=== PATIENT | female | born 1995 | race Caucasian/White ===

== ENCOUNTER 2018-06-14 00:06 | Emergency (ER) | payer MEDICAID ==
[~2018-06-14] VITALS: Ht 167.6 cm; Wt 137.6 kg
[2018-06-14 00:42] LABS: BASOPHILS # (AUTO) 0.04 x10^3/uL (0-0.1); BASOPHILS % (AUTO) 0 % (0-1); EOSINOPHILS % (AUTO) 1 % (1-7); LYMPHOCYTES # (AUTO) 2.52 x10^3/uL (1-3.4); LYMPHOCYTES % (AUTO) 20 % (22-44); MD NO; MEAN CORPUSCULAR HEMOGLOBIN 26.9 pg (27.0-34.8); MEAN CORPUSCULAR HGB CONC 33.6 g/dL (32.4-35.8); MEAN CORPUSCULAR VOLUME 79.9 fL (80-100); MEAN PLATELET VOLUME 8.2 fL (7.4-10.4); MONOCYTES # (AUTO) 0.77 x10^3/uL (0.2-0.8); MONOCYTES % (AUTO) 6 % (2-9); NEUTROPHILS # (AUTO) 9.15 x10^3/uL (1.8-6.8); NEUTROPHILS % (AUTO) 73 % (42-75); PLATELET COUNT 395 x10^3/uL (130-400); RED CELL DISTRIBUTION WIDTH 14.1 % (9.6-15.2)
[2018-06-14 00:49] LABS: ALANINE AMINOTRANSFERASE 23 U/L (12-78); ALBUMIN 3.6 g/dL (3.4-5.0); ANION GAP 11 mmol/L (5-15); CALCIUM 9.4 mg/dL (8.5-10.1); CHLORIDE 105 mmol/L (98-107)
[2018-06-14 00:53] LABS: ALKALINE PHOSPHATASE 89 U/L (45-117); BILIRUBIN,TOTAL 0.3 mg/dL (0.2-1.0); TOTAL PROTEIN 8.5 g/dL (6.4-8.2)
[2018-06-14 01:08] LABS: MICROSCOPIC INDICATED
[2018-06-14 01:25] LABS: CULTURE INDICATED? YES
[2018-06-14 01:38] VITALS: BP 125/53
== END 2018-06-14 01:46 | disposition home or self-care (01) ==
LOC: ED 01:40
DX: O03.9 Complete or unspecified spontaneous abortion without complication (principal)
CPT/HCPCS: 36415; 76856; 80053; 81001; 84702; 85025; 86901; 87077; 87086; 87186; 99285

== ENCOUNTER 2018-06-25 00:17 | Emergency (ER) | payer MEDICAID ==
[~2018-06-25] VITALS: Ht 167.6 cm; Wt 141.0 kg
[2018-06-25 00:53] LABS: MEAN CORPUSCULAR HEMOGLOBIN 26.7 pg (27.0-34.8); MEAN CORPUSCULAR HGB CONC 33.4 g/dL (32.4-35.8); MEAN CORPUSCULAR VOLUME 79.9 fL (80-100); PLATELET COUNT 455 x10^3/uL (130-400)
[2018-06-25 01:03] LABS: MICROSCOPIC NOT IND
[2018-06-25 01:07] LABS: ALBUMIN 3.9 g/dL (3.4-5.0); ANION GAP 12 mmol/L (5-15); CALCIUM 9.1 mg/dL (8.5-10.1); CHLORIDE 104 mmol/L (98-107); CREATININE 0.85 mg/dL (0.55-1.02)
[2018-06-25 01:07] LABS: CULTURE INDICATED? NO
[2018-06-25 01:39] LABS: BASOPHILS # (AUTO) 0.12 x10^3/uL (0-0.1); BASOPHILS % (AUTO) 1 % (0-1); EOSINOPHILS # (AUTO) 0.15 x10^3/uL (0-0.4); EOSINOPHILS % (AUTO) 1 % (1-7); LYMPHOCYTES # (AUTO) 3.65 x10^3/uL (1-3.4); LYMPHOCYTES % (AUTO) 20 % (22-44); MD SCAN; MONOCYTES # (AUTO) 0.94 x10^3/uL (0.2-0.8); MONOCYTES % (AUTO) 5 % (2-9); NEUTROPHILS # (AUTO) 13.41 x10^3/uL (1.8-6.8); NEUTROPHILS % (AUTO) 74 % (42-75)
[2018-06-25 01:55] LABS: CLUE CELLS NONE SEEN (NONE SEEN); WET PREP WBCS NONE SEEN (FEW)
[2018-06-25] MEDS ORDERED: FLUCONAZOLE 100 MG TABLET ONE (02:39)
[2018-06-25 02:41] VITALS: BP 108/61
[2018-06-25] MEDS ORDERED: FLUCONAZOLE 100 MG TABLET PO SCH (03:00)
== END 2018-06-25 02:49 | disposition home or self-care (01) ==
LOC: ED 01:06
DX: N93.9 Abnormal uterine and vaginal bleeding, unspecified (principal); R10.9 Unspecified abdominal pain
CPT/HCPCS: 36415; 76830; 80048; 81003; 82040; 84702; 85025; 86901; 87210; 87491; 87591; 87808; 99285

== ENCOUNTER 2018-07-29 23:14 | Emergency (ER) | payer MEDICAID ==
[~2018-07-29] VITALS: Ht 167.6 cm; Wt 134.4 kg
[2018-07-29] MEDS ORDERED: PROMETHAZINE 25 MG/ML, 1ML ONE (23:34)
[2018-07-29] MEDS ORDERED: KETOROLAC 30 MG/1 ML ONE (23:34)
[2018-07-29 23:52] LABS: BASOPHILS # (AUTO) 0.09 x10^3/uL (0-0.1); BASOPHILS % (AUTO) 1 % (0-1); EOSINOPHILS % (AUTO) 1 % (1-7); LYMPHOCYTES # (AUTO) 2.26 x10^3/uL (1-3.4); LYMPHOCYTES % (AUTO) 17 % (22-44); MD NO; MEAN CORPUSCULAR HEMOGLOBIN 26.9 pg (27.0-34.8); MEAN CORPUSCULAR HGB CONC 33.9 g/dL (32.4-35.8); MEAN CORPUSCULAR VOLUME 79.2 fL (80-100); MEAN PLATELET VOLUME 8.3 fL (7.4-10.4); MONOCYTES # (AUTO) 0.75 x10^3/uL (0.2-0.8); MONOCYTES % (AUTO) 6 % (2-9); NEUTROPHILS # (AUTO) 9.82 x10^3/uL (1.8-6.8); NEUTROPHILS % (AUTO) 76 % (42-75); PLATELET COUNT 418 x10^3/uL (130-400); RED BLOOD COUNT 5.12 x10^6/uL (3.82-5.3); RED CELL DISTRIBUTION WIDTH 14.2 % (9.6-15.2)
[2018-07-30] LABS: ALBUMIN 3.4 g/dL (3.4-5.0); ANION GAP 10 mmol/L (5-15); CALCIUM 8.4 mg/dL (8.5-10.1); CHLORIDE 110 mmol/L (98-107); CREATININE 1.18 mg/dL (0.55-1.02)
[2018-07-30] MEDS ORDERED: KETOROLAC 60 MG/2 ML IM ONE
[2018-07-30] MEDS ORDERED: PROMETHAZINE 25 MG/ML, 1ML IM ONE
[2018-07-30 00:09] LABS: RAPID INFLUENZA A Negative (Negative); RAPID INFLUENZA B Negative (Negative)
[2018-07-30 00:57] VITALS: BP 147/85
[2018-07-30] MEDS ORDERED: CEFDINIR 300 MG CAPSULE ONE (01:57)
[2018-07-30] MEDS ORDERED: CEFDINIR 300 MG CAPSULE PO ONE (02:00)
== END 2018-07-30 02:06 | disposition home or self-care (01) ==
LOC: ED 23:51
DX: K52.9 Noninfective gastroenteritis and colitis, unspecified (principal)
CPT/HCPCS: 36415; 71045; 80048; 82040; 85025; 87400; 96372; 99284; J1885; J2550

== ENCOUNTER 2018-08-18 21:49 | Emergency (ER) | payer MEDICAID ==
[~2018-08-18] VITALS: Ht 170.2 cm; Wt 137.0 kg
[2018-08-18] MEDS ORDERED: PROMETHAZINE 25 MG/ML, 1ML ONE (22:30)
[2018-08-18] MEDS ORDERED: PROMETHAZINE 25 MG/ML, 1ML IM ONE (22:30)
[2018-08-18 22:53] LABS: BASOPHILS # (AUTO) 0.04 x10^3/uL (0-0.1); BASOPHILS % (AUTO) 0 % (0-1); EOSINOPHILS # (AUTO) 0.09 x10^3/uL (0-0.4); EOSINOPHILS % (AUTO) 1 % (1-7); LYMPHOCYTES # (AUTO) 2.38 x10^3/uL (1-3.4); LYMPHOCYTES % (AUTO) 16 % (22-44); MD NO; MEAN CORPUSCULAR VOLUME 79.4 fL (80-100); MEAN PLATELET VOLUME 8.1 fL (7.4-10.4); MONOCYTES # (AUTO) 0.69 x10^3/uL (0.2-0.8); MONOCYTES % (AUTO) 5 % (2-9); NEUTROPHILS # (AUTO) 11.56 x10^3/uL (1.8-6.8); NEUTROPHILS % (AUTO) 78 % (42-75); PLATELET COUNT 352 x10^3/uL (130-400); RED BLOOD COUNT 4.98 x10^6/uL (3.82-5.3); RED CELL DISTRIBUTION WIDTH 14.1 % (9.6-15.2)
[2018-08-18 23:02] LABS: ALBUMIN 3.2 g/dL (3.4-5.0); ANION GAP 10 mmol/L (5-15); CALCIUM 8.6 mg/dL (8.5-10.1); CHLORIDE 107 mmol/L (98-107)
[2018-08-18 23:05] LABS: ALANINE AMINOTRANSFERASE 14 U/L (12-78); ALKALINE PHOSPHATASE 80 U/L (45-117); BILIRUBIN,TOTAL 0.3 mg/dL (0.2-1.0); CREATININE 0.61 mg/dL (0.55-1.02); TOTAL PROTEIN 7.4 g/dL (6.4-8.2)
[2018-08-18 23:07] LABS: MICROSCOPIC NOT IND
[2018-08-18 23:10] LABS: CULTURE INDICATED? NO
[2018-08-18 23:16] LABS: HCG UR SG 1.023 (1.003-1.030)
[2018-08-18 23:57] VITALS: BP 137/81
== END 2018-08-18 23:59 | disposition home or self-care (01) ==
LOC: ED 23:26
DX: A09 Infectious gastroenteritis and colitis, unspecified (principal)
CPT/HCPCS: 36415; 80053; 81003; 81025; 83690; 85025; 99283

== ENCOUNTER 2018-09-12 23:51 | Emergency (ER) | payer SELFPAY ==
[~2018-09-12] VITALS: Ht 170.2 cm; Wt 138.0 kg
[2018-09-13] MEDS ORDERED: PROMETHAZINE 25 MG/ML, 1ML ONE (00:25)
[2018-09-13] MEDS ORDERED: PROMETHAZINE 25 MG/ML, 1ML IM ONE (00:30)
[2018-09-13 00:37] LABS: BASOPHILS # (AUTO) 0.17 x10^3/uL (0-0.1); BASOPHILS % (AUTO) 1 % (0-1); EOSINOPHILS # (AUTO) 0.15 x10^3/uL (0-0.4); EOSINOPHILS % (AUTO) 1 % (1-7); LYMPHOCYTES # (AUTO) 2.46 x10^3/uL (1-3.4); LYMPHOCYTES % (AUTO) 18 % (22-44); MD NO; MEAN CORPUSCULAR HEMOGLOBIN 26.5 pg (27.0-34.8); MEAN CORPUSCULAR VOLUME 80.5 fL (80-100); MEAN PLATELET VOLUME 8.3 fL (7.4-10.4); MONOCYTES # (AUTO) 0.76 x10^3/uL (0.2-0.8); MONOCYTES % (AUTO) 6 % (2-9); NEUTROPHILS # (AUTO) 9.92 x10^3/uL (1.8-6.8); NEUTROPHILS % (AUTO) 74 % (42-75); PLATELET COUNT 365 x10^3/uL (130-400); RED BLOOD COUNT 5.22 x10^6/uL (3.82-5.3); RED CELL DISTRIBUTION WIDTH 13.8 % (9.6-15.2)
[2018-09-13 00:45] LABS: ALANINE AMINOTRANSFERASE 19 U/L (12-78); ALBUMIN 3.2 g/dL (3.4-5.0); ANION GAP 7 mmol/L (5-15); CALCIUM 8.4 mg/dL (8.5-10.1); CHLORIDE 107 mmol/L (98-107); CREATININE 0.73 mg/dL (0.55-1.02)
[2018-09-13 00:49] LABS: MICROSCOPIC NOT IND
[2018-09-13 00:49] LABS: ALKALINE PHOSPHATASE 86 U/L (45-117); BILIRUBIN,TOTAL 0.2 mg/dL (0.2-1.0); TOTAL PROTEIN 7.3 g/dL (6.4-8.2)
[2018-09-13 00:52] LABS: CULTURE INDICATED? NO
[2018-09-13 01:10] LABS: CLOSTRIDIUM DIFFICILE ANTIGEN POSITIVE; CLOSTRIDIUM DIFFICILE TOXIN NEGATIVE (Negative)
--- NOTE | 2018-09-13 01:19 | NUR ---
PT RESTING ON GURNEY. RR EVEN AND UNLABORED. PT ON CONT. SPO2 AND BP MONITOR, VSS. PT DENIES PAIN AND NEEDS ATT.
[2018-09-13 01:52] LABS: HEMOGLOBIN A1C 7.9 % (4.2-6.3)
[2018-09-13 02:20] VITALS: BP 116/75
== END 2018-09-13 02:37 | disposition home or self-care (01) ==
LOC: ED 09-13 00:06
DX: G89.29 Other chronic pain (principal); R10.9 Unspecified abdominal pain; E11.65 Type 2 diabetes mellitus with hyperglycemia
CPT/HCPCS: 36415; 80053; 81003; 83036; 83690; 84703; 85025; 87324; 87493; 89055; 99283

== ENCOUNTER 2018-12-01 00:13 | Emergency (ER) | payer SELFPAY ==
[~2018-12-01] VITALS: Ht 170.2 cm; Wt 135.5 kg
--- NOTE | 2018-12-01 01:57 | NUR ---
PT. TO ROOM FROM LOBBY.
[2018-12-01] MEDS ORDERED: PROMETHAZINE 25 MG/ML, 1ML IM ONE (02:00)
[2018-12-01] MEDS ORDERED: PROMETHAZINE 25 MG/ML, 1ML ONE (02:00)
--- NOTE | 2018-12-01 02:11 | NUR ---
First contact w/ pt. Pt amb w/ steady gait to room. Medicated per OCT. States n/v/dx1 day w/ diffuse abd pain. States recently on period, but unknown if . Pt supplied UA at this time. Denies any abnormal vag bleed or d/c. States able to tolerate intermittent po intake. denies any hypotensive s/s. Lab at bedside.
[2018-12-01 02:19] LABS: BASOPHILS # (AUTO) 0.04 x10^3/uL (0-0.1); BASOPHILS % (AUTO) 0 % (0-1); EOSINOPHILS # (AUTO) 0.01 x10^3/uL (0-0.4); EOSINOPHILS % (AUTO) 0 % (1-7); LYMPHOCYTES # (AUTO) 1.02 x10^3/uL (1-3.4); LYMPHOCYTES % (AUTO) 9 % (22-44); MD NO; MEAN CORPUSCULAR HEMOGLOBIN 26.8 pg (27.0-34.8); MEAN CORPUSCULAR HGB CONC 33.8 g/dL (32.4-35.8); MEAN CORPUSCULAR VOLUME 79.5 fL (80-100); MEAN PLATELET VOLUME 8.2 fL (7.4-10.4); MONOCYTES # (AUTO) 0.58 x10^3/uL (0.2-0.8); MONOCYTES % (AUTO) 5 % (2-9); NEUTROPHILS # (AUTO) 10.25 x10^3/uL (1.8-6.8); NEUTROPHILS % (AUTO) 86 % (42-75); PLATELET COUNT 341 x10^3/uL (130-400); RED BLOOD COUNT 5.53 x10^6/uL (3.82-5.3); RED CELL DISTRIBUTION WIDTH 13.8 % (9.6-15.2)
[2018-12-01 02:31] LABS: ALANINE AMINOTRANSFERASE 24 U/L (12-78); ALBUMIN 3.9 g/dL (3.4-5.0); ANION GAP 11 mmol/L (5-15); CALCIUM 8.6 mg/dL (8.5-10.1); CHLORIDE 108 mmol/L (98-107); CREATININE 0.79 mg/dL (0.55-1.02)
[2018-12-01 02:34] LABS: ALKALINE PHOSPHATASE 84 U/L (45-117); BILIRUBIN,TOTAL 0.7 mg/dL (0.2-1.0); TOTAL PROTEIN 8.3 g/dL (6.4-8.2)
[2018-12-01 02:38] LABS: HCG UR SG 1.036 (1.003-1.030); MICROSCOPIC NOT IND
[2018-12-01 02:39] LABS: CULTURE INDICATED? NO
[2018-12-01] MEDS ORDERED: MAALOX/HYOSCYAMINE/LIDOCAINE 45 ML BTL ONE (02:50)
[2018-12-01 02:55] VITALS: BP 152/88
--- NOTE | 2018-12-01 02:55 | NUR ---
Pt further medicated per MD order. states been drinking gatorade from and tolerating po intake.
[2018-12-01] MEDS ORDERED: MAALOX/HYOSCYAMINE/LIDOCAINE 45 ML BTL PO ONE (03:00)
--- NOTE | 2018-12-01 03:36 | NUR ---
at bedside for recheck. Tbdc. Awaiting d/c paperwork.
== END 2018-12-01 04:08 | disposition home or self-care (01) ==
LOC: ED 02:36
DX: K29.00 Acute gastritis without bleeding (principal); Z90.49 Acquired absence of other specified parts of digestive tract
CPT/HCPCS: 36415; 80053; 81003; 81025; 83690; 85025; 96372; 99283; J2550

== ENCOUNTER 2019-03-11 21:01 | Emergency (ER) | payer SELFPAY ==
[~2019-03-11] VITALS: Ht 167.6 cm; Wt 129.1 kg
[2019-03-11] MEDS ORDERED: ACETAMINOPHEN 500 MG TABLET ONE (21:22)
[2019-03-11] MEDS ORDERED: ACETAMINOPHEN 500 MG TABLET PO ONE (21:30)
--- NOTE | 2019-03-11 21:35 | NUR ---
PT TO US
[2019-03-11 21:42] LABS: BASOPHILS # (AUTO) 0.02 x10^3/uL (0-0.1); BASOPHILS % (AUTO) 0 % (0-1); EOSINOPHILS # (AUTO) 0.05 x10^3/uL (0-0.4); EOSINOPHILS % (AUTO) 0 % (1-7); LYMPHOCYTES # (AUTO) 2.04 x10^3/uL (1-3.4); LYMPHOCYTES % (AUTO) 16 % (22-44); MD NO; MEAN CORPUSCULAR HGB CONC 32.9 g/dL (32.4-35.8); MEAN CORPUSCULAR VOLUME 82.1 fL (80-100); MEAN PLATELET VOLUME 8.4 fL (7.4-10.4); MONOCYTES # (AUTO) 0.77 x10^3/uL (0.2-0.8); MONOCYTES % (AUTO) 6 % (2-9); NEUTROPHILS # (AUTO) 10.16 x10^3/uL (1.8-6.8); NEUTROPHILS % (AUTO) 78 % (42-75); PLATELET COUNT 401 x10^3/uL (130-400); RED BLOOD COUNT 5.48 x10^6/uL (3.82-5.3); RED CELL DISTRIBUTION WIDTH 14.6 % (9.6-15.2)
[2019-03-11 21:46] LABS: CULTURE INDICATED? YES; MICROSCOPIC INDICATED
[2019-03-11 21:53] LABS: ALANINE AMINOTRANSFERASE 29 U/L (12-78); ALBUMIN 4.4 g/dL (3.4-5.0); ANION GAP 11 mmol/L (5-15); CHLORIDE 111 mmol/L (98-107); CREATININE 0.83 mg/dL (0.55-1.02)
[2019-03-11 21:57] LABS: ALKALINE PHOSPHATASE 87 U/L (45-117); BILIRUBIN,TOTAL 0.6 mg/dL (0.2-1.0); TOTAL PROTEIN 8.9 g/dL (6.4-8.2)
[2019-03-11] MEDS ORDERED: CEFDINIR 300 MG CAPSULE ONE (22:08)
[2019-03-11 22:21] VITALS: BP 162/95
[2019-03-11] MEDS ORDERED: CEFDINIR 300 MG CAPSULE PO ONE (22:30)
--- NOTE | 2019-03-11 22:32 | NUR ---
RN ENTERED ROOM TO OBTAIN MORE VITAL SIGNS, FAMILY INTOXICATED AND VERBALLY AGGRESSIVE TO RN STATING "YOU DON'T EVEN KNOW HOW TO TAKE VITALS, HOW DO YOU KNOW SHES NOT , WE ARE GOING TO ANOTHER DR", RN EXPLAINED PT CAN OBTAIN COPIES OF RECORDS AND SEE ANOTHER PRACTITIONER OF HER CHOICE. FAMILY CONTINUED TO YELL AND LEFT PREMESIS. PT TO BE DISHARGED
== END 2019-03-11 22:52 | disposition home or self-care (01) ==
LOC: ED 21:54
DX: O23.11 Infections of bladder in pregnancy, first trimester (principal); O24.419 Gestational diabetes mellitus in pregnancy, unspecified control; Z3A.10 10 weeks gestation of pregnancy
CPT/HCPCS: 36415; 76801; 80053; 81001; 84702; 85025; 86901; 87077; 87086; 87186; 99284